=== PATIENT | female | born 1940 | race Two or more races ===

== ENCOUNTER 2021-07-02 09:37 | Inpatient (IN) | payer OTHER ==
[~2021-07-02] VITALS: Ht 167.6 cm; Wt 72.6 kg
--- NOTE | 2021-07-02 09:49 | NUR ---
SE RECIBE PTE EN COMPANIA DE PARAMEDICO EL CUAL REFIERE QUE PTE TIENE DEBILIDAD Y QUE NO ESTA INGIRIENDO COMIDA SE UBICA PTE EN ADALI SE PRESENTA A LA VIKASH
--- NOTE | 2021-07-02 11:16 | NUR ---
SE ORIENTA PTE Y FAMILIAR SOBRE EL TRATAMIENTO ORDENADO POR LA DRA SCOTT PTE ALERTA Y ORIENTADO POR 3 SE REALIZAN MUESTRAS DE LABORATORIO Y SE ADMINISTRAN MEDICAMENTO FRANCK ORDENADO
--- NOTE | 2021-07-02 16:11 | NUR ---
SE RECIBE PTE DEL TURNO ANTERIOR, ALERTA Y DESORIENTADA EN COMPANIA DE FAMILIAR UBICADA EN ADALI NIVEL MAS BAJO, FOX DE IDENTIFICACION Y BARANDAS ELEVADAS POR PRECAUCION. SE OBSERVA CON BUEN PATRON RESPIRATORIO Y PIEL TIBIA AL TACTO. PTE SIN CANALIZAR, TURNO ANTERIOR INDICA PTE SE ARRANCO IV. SE NOTIFICA A DR SCOTT QUIEN ORDENA RESTRINGIR LA MISMA. SE ORIENTA A FAMILAIR Y SE RESTRINGE LA MISMA SE CANALIZA PTE FRANCK ORDEN MEDICA Y SIGUIENDO MEDIDAS ASEPTICAS. PENDIENTE CONSULTA CON E OWENS (MEDICINA INTERNA) SE MANTIENE BAJO OBSERVACION.
[2021-07-04] MEDS ORDERED: GLIMEPIRIDE1 M1 (08:11)
[2021-07-04] MEDS ORDERED: MEMANTINE HCL10 MG (08:11)
[2021-07-04] MEDS ORDERED: FLECAINIDE ACET50 MG (08:11)
[2021-07-04] MEDS ORDERED: DONEPEZIL HCL10 MG (08:11)
[2021-07-04] MEDS ORDERED: FUROSEMIDE40 MG (08:11)
[2021-07-04] MEDS ORDERED: CARVEDILOL6.25 M1 (08:11)
[2021-07-04] MEDS ORDERED: SYNTHROID100 MCG (08:12)
[2021-07-04] MEDS ORDERED: METOPROLOL SUCC50 MG (08:12)
[2021-07-04] MEDS ORDERED: DIGOXIN125 MCG (08:12)
[2021-07-04] MEDS ORDERED: SPIRONOLACTONE25 MG (08:12)
[2021-07-04] MEDS ORDERED: TRAZODONE HCL100 MG (08:12)
[2021-07-04] MEDS ORDERED: XARELTO20 MG (08:12)
[2021-07-04] MEDS ORDERED: METOPROLOL SUCC25 MG (08:12)
[2021-07-04] MEDS ORDERED: QUETIAPINE FUMA50 MG (08:12)
[2021-07-04] MEDS ORDERED: FAMOTIDINE20 MG (08:13)
[2021-07-04] MEDS ORDERED: ATORVASTATIN CA40 MG (08:13)
[2021-07-04] MEDS ORDERED: CLONAZEPAM0.5 MG (08:13)
[2021-07-04] MEDS ORDERED: DILTIAZEM 24HR180 MG (08:13)
[2021-07-04] MEDS ORDERED: SERTRALINE HCL50 MG (08:13)
== END 2021-07-06 15:23 | disposition home or self-care (01) | DRG 641 ==
LOC: ER 09:37 → MEDJ 21:19
PROVIDERS: ADMIT Internal Medicine; ATTEND Internal Medicine
PROC: B24BZZZ Ultrasonography of Heart with Aorta (ICD-10-PCS; principal; 2021-07-05)
DX: E86.0 Dehydration (principal); E87.6 Hypokalemia; R13.19 Other dysphagia; G30.8 Other Alzheimer's disease; F02.80 Dementia in other diseases classified elsewhere, unspecified severity, without behavioral disturbance, psychotic disturbance, mood disturbance, and anxiety; I50.9 Heart failure, unspecified; I10 Essential (primary) hypertension; I48.91 Unspecified atrial fibrillation; Z20.822 Contact with and (suspected) exposure to COVID-19; Z74.01 Bed confinement status